=== PATIENT | female | born 1980 | race Caucasian/White ===

== ENCOUNTER 2023-03-21 06:48 | Day surgery (SDC) | payer BC ==
[~2023-03-21 06:48] MED LIST: Lactated Ringers 1,000 ML IV SCH; Lidocaine 1% 2 ML ONE; Midazolam 1 MG/ML 2 ML SDV ONE; Propofol 200 MG/20 ML SDV ONE; Rocuronium 50 MG/5 ML Vial ONE; Sodium Chloride 0.9% 10 ML Syringe FLUSH PRN; Sodium Chloride 0.9% 10 ML Syringe FLUSH SCH; ceFAZolin 2 GM Vial ONE; fentaNYL 100 MCG/2 ML SDV ONE
[2023-03-21] MEDS ORDERED: Ketorolac 30 MG/ML SDV ONE (06:57)
[2023-03-21] MEDS ORDERED: Dexamethasone 4 MG/ML 5 ML MDV ONE (06:57)
[2023-03-21] MEDS ORDERED: Ondansetron 4 MG/2 ML SDV ONE (06:57)
[2023-03-21] MEDS ORDERED: Sugammadex Sodium 200 MG/2 ML VIAL ONE (07:05)
[2023-03-21 07:11] LABS: BASOPHILS ABSOLUTE AUTO 0.1 K/mm3 (0.0-0.2); BASOPHILS PERCENT AUTO 1.3 % (0.0-1.0); HEMATOCRIT 36.7 % (37.0-47.0); IMMATURE GRAN ABSOLUTE AUTO 0.02 K/mm3 (0.00-0.05); IMMATURE GRAN PERCENT AUTO 0.4 % (0.0-0.4); LYMPHOCYTES ABSOLUTE AUTO 1.9 K/mm3 (1.0-4.8); LYMPHOCYTES PERCENT AUTO 34.1 % (24.0-44.0); MEAN CORPUSCULAR HEMOGLOBIN 31.3 pg (28.0-32.0); MEAN CORPUSCULAR HGB CONC 35.4 g/dl (32.0-36.0); MEAN CORPUSCULAR VOLUME 88.2 fl (83.0-99.0); MEAN PLATELET VOLUME 9.8 fl (9.4-12.3); MONOCYTES ABSOLUTE AUTO 0.5 K/mm3 (0.0-0.8); NEUTROPHILS ABSOLUTE AUTO 3.1 K/mm3 (1.8-7.7); NEUTROPHILS PERCENT AUTO 55.2 % (41.0-71.0); PLATELET COUNT,PLT 296 K/mm3 (150-400); RED BLOOD CELL COUNT 4.16 M/mm3 (4.10-5.30); WHITE BLOOD CELL COUNT,WBC 5.58 K/mm3 (3.9-11.3)
[2023-03-21] MEDS ORDERED: EPINEPHrine 1 MG/ML SDV ONE (07:16)
[2023-03-21] MEDS ORDERED: Bupivacaine 0.5% 30 ML SDV ONE (07:16)
[2023-03-21] MEDS ORDERED: HYDROmorphone 0.5 MG/0.5 ML Syringe IVPUSH PRN (07:17)
[2023-03-21] MEDS ORDERED: Bupivacaine 0.25% 10 ML SDV ONE (07:17)
[2023-03-21] MEDS ORDERED: Ondansetron 4 MG/2 ML SDV IVPUSH PRN (07:17)
[2023-03-21] MEDS ORDERED: fentaNYL 100 MCG/2 ML SDV IVPUSH PRN (07:17)
[2023-03-21] MEDS ORDERED: ePHEDrine 50 MG/ML SDV ONE (07:25)
[2023-03-21] MEDS ORDERED: HYDROmorphone 0.5 MG/0.5 ML Syringe ONE (07:25)
[2023-03-21] MEDS ORDERED: fentaNYL 100 MCG/2 ML SDV ONE (07:26)
[2023-03-21 07:27] LABS: ANION GAP 16.8 (5-15); CALCIUM 8.6 mg/dL (8.5-10.1); CREATININE 0.8 mg/dL (0.55-1.02); EST CRCL DRUG DOSING (CG) 69.69 mL/min; POTASSIUM,K 3.8 mEq/L (3.5-5.1)
[2023-03-21] MEDS ORDERED: Rocuronium 50 MG/5 ML Vial ONE (07:49)
[2023-03-21] MEDS: Bupivacaine 0.5% 10 ML SDV ONE ×2 (08:12→08:46)
[2023-03-21] MEDS ORDERED: Lactated Ringers 1,000 ML ONE (08:58)
[2023-03-21] MEDS ORDERED: Acetaminophen/oxyCODONE 325-5 MG Tab PO PRN (10:20)
== END 2023-03-21 12:20 | disposition home or self-care (01) ==
LOC: JD.SDS 06:48
PROVIDERS: ATTEND Obstetrics & Gynecology
DX: N87.0 Mild cervical dysplasia (principal); N72 Inflammatory disease of cervix uteri; N80.03 Adenomyosis of the uterus; M06.9 Rheumatoid arthritis, unspecified; K21.9 Gastro-esophageal reflux disease without esophagitis; Z79.1 Long term (current) use of non-steroidal anti-inflammatories (NSAID); Z79.899 Other long term (current) drug therapy
CPT/HCPCS: 00944; 36415; 80048; 81025; 85025; 86850; 86900; 86901; J0171; J0690; J1100; J1170; J1885; J2250; J2405; J2704; J3010; J3490; J7120